=== PATIENT | female | born 1975 | race Caucasian/White ===

== ENCOUNTER 2016-12-22 11:06 | Emergency (ER) | payer OTHER ==
--- NOTE | 2016-12-22 11:21 | ERNOTE ---
Medical Problem HPI - Narrative Date of Service: 12/22/16 - General Chief Complaint: Abdominal Pain Time Seen by Provider: 12/22/16 11:28 Source: patient Exam Limitations: no limitations - Immun/Allergies/Home Medications Immunizations: IMMUNIZATION HX Immunizations Up to Date Yes History of Influenza Vaccine Yes Hx Pneumococcal Vaccination No Allergies/Adverse Reactions: Allergies No Known Allergies Allergy (Verified 12/22/16 11:21) Home Medications: HOME MEDICATIONS Alprazolam [Xanax] 0.5 mg PO BID 01/30/14 [Last Taken Unknown] Dexlansoprazole [Dexilant] 60 mg PO DAILY 01/30/14 [Last Taken Unknown] Lisinopril 40 mg PO DAILY 01/30/14 [Last Taken Unknown] Gabapentin 900 mg PO TID 08/18/14 [Last Taken Unknown] traMADol HCL [Ultram] 50 mg PO TID 08/18/14 [Last Taken Unknown] Insulin Glargine,Hum.rec.anlog [Lantus] 30 units SC HS 06/27/15 [Last Taken Unknown] Albuterol Sulfate [Ventolin Hfa] 8 gm IH BID 07/07/15 [Last Taken Unknown] Cyclobenzaprine HCl [Flexeril] 20 mg PO HS 02/07/16 [Last Taken Unknown] Phentermine HCl 30 mg PO DAILY 02/07/16 [Last Taken Unknown] Polyethylene Glycol 3350 [Miralax] 17 gm PO DAILY 02/07/16 [Last Taken Unknown] Nortriptyline HCl [Pamelor] 25 mg PO HS 12/22/16 [Last Taken Unknown] Oxcarbazepine [Trileptal] 150 mg PO BID 12/22/16 [Last Taken Unknown] Pramipexole Di-HCl [Mirapex] 0.25 mg PO HS 12/22/16 [Last Taken Unknown] Topiramate [Topamax] 100 mg PO HS 12/22/16 [Last Taken Unknown] - History of Present History Narrative: Just before noon yesterday, gradually developed epigastric pain. Sharp and like a large softball, tender. No prior. Radiates up into chest. Moving certain ways worsens. BM yesterday soft, no blood in it. No urinary symptoms. Has steadily worsened, so she came here. Drinking liquids worsens. Prior gastric bypass. Timing: getting worse Severity: moderate, severe Modifying Factors - (Improves): Present: other - nothing Modifying Factors - (Worsens): Present: other - drinking Review of Systems - Review of Systems Constitutional: Present: no symptoms reported EYE: Present: no symptoms reported ENT: Present: no symptoms reported Respiratory: Present: no symptoms reported Cardiology: Present: chest pain Gastrointestinal/Abdominal: Present: See HPI, eating less, drinking less. Absent: nausea, vomiting Genitourinary: Present: no symptoms reported Musculoskeletal: Present: no symptoms reported Skin: Present: no symptoms reported Neurological: Present: no symptoms reported Endocrine: Present: no symptoms reported Hematologic/Lymphatic: Present: no symptoms reported Psych: Present: no symptoms reported All Other Systems: All systems neg except as marked - Patient's Past Medical History Patient History - Medical: Diabetes Type 2 Insulin Dependent Patient History - Cardiac/Respiratory: No pertinent hx Patient History - Cancer: No Hx of Cancer Patient History - Surgical Procedures: Back Surgery, Cholecystectomy, Gastric Bypass, Hysterectomy, Other Patient History - Other: None - Family History Mother Family History - Medical: Father Family History - Medical: - Social History Living Situations: home Abuse History: No History of abuse Psych History: Hx of Depression Smoking Status: Never smoker Have you smoked in the past 12 months: No Do you dip or chew tobacco: No Alcohol Use: none Drug Use: none - Immunizations Immunizations Up to Date: Yes Hx Pneumococcal Vaccination: No History of Influenza Vaccine: Yes Physical Exam - Physical Exam General Appearance: Present: wd/wn, alert, mild distress, obese Eye Exam: Normal inspection: bilateral, PERRL: bilateral, EOMI: bilateral Ears, Nose, Throat: Present: normal ENT inspection Neck: Present: normal inspection, nontender Respiratory: Present: no respiratory distress, normal breath sounds Cardiovascular/Chest: Present: regular rate, rhythm, no murmur Gastrointestinal/Abdominal: Present: normal bowel sounds, nondistended, soft, no organomegaly, tenderness - epigastric Back Exam: Present: normal inspection, no CVA tenderness, no vertebral tenderness Extremity Exam: Present: normal inspection, pedal edema Neurological Exam: Present: alert, oriented, no motor/sensory deficits Skin Exam: Present: normal color, warm/dry ED Progress - Results and Orders Patient's Lab Results:: I have reviewed the patient's lab results. - Vital Signs Patient's Vital Signs:: I have reviewed the patient's vital signs. Vital Signs: Vital Signs 12/22/16 11:14 Temperature 36.8 C Pulse Rate 75 Respiratory 14 Rate Blood Pressure 107/60 O2 Sat by Pulse 97 Oximetry - EKG EKG: NSR EKG read: Interp. by me - non acute - CT/Ultrasound CT/Ultrasound Narrative: The patient remains uncomfortable, though improved, following two doses of Dilaudid and Phenergan IV. CT scan report I've reviewed, which describes a possible ulcer at the gastrojejunal anastamosis and a possible gastrogastric fistula. I discussed this with the patient, and recommended ambulance transfer today to the [facility] where she had her gastric bypass surgery in September of 2016. - Progress/Reassessment Chief Complaint: General Assessment Progress Note-Subjective: 12/22/16 15:15 I spoke by telephone with Dr. Andrew Platt, triage, [facility], who agreed to accept this patient by ambulance transfer. Departure - Departure Clinical Impression: Gastrogastric fistula Gastric ulcer Qualifiers: Gastric ulcer chronicity: acute Gastric ulcer complication status: unspecified whether hemorrhage or perforation present Qualified Code(s): K25.3 - Acute gastric ulcer without hemorrhage or perforation Disposition: [facility] Condition: Good Referrals: [Primary Care Provider] -
[2016-12-22] MEDS ORDERED: NORMAL SALINE 1,000 ML IV ONE (11:36)
[2016-12-22] MEDS ORDERED: HYDROmorphone HCL 1 MG/ML DISP.SYRIN IV ONE ×2 (11:36→14:12)
[2016-12-22] MEDS ORDERED: PROMETHAZINE HCL 25 MG in DEXTROSE 5 % IN WATER 50 ML IV ONE ×4 (11:36→14:12)
[2016-12-22] MEDS ORDERED: LIDOCAINE HCL 20 ML UDC PO ONE (11:38)
[2016-12-22] MEDS ORDERED: MAG HYDROX/ALUMINUM HYD/SIMETH 30 ML UDC PO ONE (11:38)
[2016-12-22] MEDS ORDERED: BELLADONNA ALKALOIDS/PHENOBARB 60 ML BTL PO ONE (11:38)
[2016-12-22] MEDS ORDERED: HYDROmorphone HCL 1 MG/ML DISP.SYRIN ONE ×2 (11:44→14:17)
--- OUTSIDE RECORDS SUMMARY | 2016-12-22 11:52 | XMS REPORT | Continuity of Care Document ---
:1975 Author Organization [facility] ([facility]) Address [address] [place] [address] Phone [phone] Care Team Providers Name Role Phone Thang Gonzalez Primary Care Provider [phone] Source Comments This disclosure is being made pursuant to the Care Everywhere program, applicable federal and state laws, and may not contain all informaitonavailable regarding this patient.[facility] ([facility]) Active Allergies and Adverse Reactions Allergen Noted Date Severity Reactions Comments Adhesive Tape-Silicones 10/10/2016 Pruritus Pt. States that she gets skin irritation from plastic tape. Current Medications Prescription Sig. Disp. Refills Start Date End Date Status ALPRAZOLAM 0.5 mg Take 0.5 mg by mouth 2 06/12/2015 Active tablet 2 times daily as needed. SUPPLY FREESTYLE LITE 5 07/07/2015 Active test strips SUPPLY FREESTYLE LITE 0 07/05/2015 Active meter TRAMADOL 50 mg tablet Take 50 mg by mouth 0 07/12/2015 Active daily. NORTRIPTYLINE 25 mg Take 50 mg by mouth 5 06/19/2015 Active capsule at bedtime. LOVASTATIN 20 mg Take 20 mg by mouth 5 07/08/2015 Active tablet every evening. LISINOPRIL 40 mg Take 40 mg by mouth 1 06/27/2015 Active tablet daily. GABAPENTIN 300 mg Take 900 mg by mouth 2 06/25/2015 Active capsule 3 times daily. SUPPLY lancets 5 05/19/2015 Active (UNILET) 30 gauge DEXIL[address] Take 60 mg by mouth 5 06/19/2015 Active capsule daily. BD INSULIN SYRINGE 5 07/12/2015 Active ULTRA-FINE 1 mL 31 g x 5/16" FLUoxetine 20 mg Take 40 mg by mouth 2 10/30/2015 Active capsule daily. VENTOLIN HFA 90 Use 1-2 Puffs by 0 10/26/2015 Active mcg/Actuation inhaler inhalation every 4 hours as needed. albuterol 2.5 mg/3 mL Use 3 mL by 0 10/16/2015 Active inhalation solution inhalation every 6 hours as needed. topiramate 50 mg Take 50 mg by mouth 1 08/05/2016 Active tablet 2 times daily. docusate 100 mg Take 200 mg by mouth Active capsule every 72 hours. OXcarbazepine 150 mg Take 150 mg by mouth 2 09/11/2016 Active tablet 2 times daily. For fibromyalgia OTHER Cream for yeast Active HYDROmorphone 2 mg Take 1 tablet (2 mg 20 tablet 0 09/27/2016 Active tablet total) by mouth every 4 hours as needed for Pain. Use as needed after bariatric surgery. ondansetron 4 mg Take 1 tablet (4 mg 10 tablet 1 09/27/2016 Active tablet total) by mouth every 6 hours as needed for Nausea/Vomiting. Use as needed after bariatric surgery. cyclobenzaprine 10 mg Take 10 mg by mouth Active tablet at bedtime. pramipexole 0.25 mg Take 0.25 mg by Active tablet mouth at bedtime. magnesium oxide PO Take 1 tablet by Active mouth daily. insulin lispro Inject 1-5 Units 3 mL 5 10/11/2016 Active (HumaLOG) 100 unit/mL subcutaneously injection vial before meals and at bedtime. 1 U insulin for every 50 over BG of 150: 1 U for 151-200, 2 U for 201-250, 3 U for 251-300, 4 U for 301-350, 5 U for 351-400. insulin glargine Inject 15 Units 10 mL 11 10/11/2016 Active (LANTUS) 100 unit/mL subcutaneously injection vial daily. HYDROcodone-acetamino TAKE ONE TABLET PO Q 0 09/30/2016 Active phen 5-325 mg per FOUR H PRF PAIN tablet prednisoLONE acetate Instill 1 Drop onto 5 mL 0 10/22/2016 Active 1 % ophthalmic the right eye 4 suspension times daily. cyclopentolate 1 % Instill 1 Drop onto 15 mL 0 10/22/2016 Active ophthalmic solution the right eye daily. acyclovir 800 mg Take 1 tablet (800 50 tablet 3 10/25/2016 Active tablet mg total) by mouth 5 times daily. Active Problems Problem Noted Date Diabetes mellitus type 2 in obese 04/03/2016 Obstructive sleep apnea syndrome 04/03/2016 Morbid obesity due to excess calories 10/30/2015 Chiari malformation 07/07/2015 Most Recent Encounters Date Type Specialty Providers Description 12/12/2016 Telephone [facility] Sushma Hawkins, Chief Comp: RN Follow-up 11/21/2016 [facility] Food and Nutrition Earnest Mendoza MD Chief Comp: Patient Encounter Kimberly Felipe RD Reported Reason For LD Visit 11/21/2016 Office Visit Earnest Duong MD Chief Comp: Patient Avgenackis, Reported Reason For Allison Munguia PA-C Visit 11/14/2016 [facility] Food and Nutrition Default, Other Chief Comp: Patient Encounter Billg - Defo Reported Reason For Earnest Mendoza MD Visit Kimberly Felipe RD LD 11/14/2016 Office Visit Tammie Baca, Dx: Encounter for Allison Munguia PA-C long-term (current) Earnest Mendoza MD drug use (Primary Dx) 11/08/2016 Office Visit [facility] BRITTON Baca, Chief Comp: Patient AllisonJEET Whitfield-C Reported Reason For Visit 10/22/2016 Office Visit Ophthalmology - Marybel Levi Dx: Iridocyclitis of Specialty K, 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 (Primary Dx) 10/22/2016 Telephone [facility] GI/Hepatology Yuni Lindsey RN Chief Comp: Medication Question 10/21/2016 Office Visit Ophthalmology - Marybel Levi Chief Comp: Patient Specialty K, OD Reported Reason For Visit 10/18/2016 Telephone [facility] Endocrinology Ene Seymour, Chief Comp: Diabetes RN 10/15/2016 Office Visit Ophthalmology - Default, Other Dx: Herpes zoster Specialty Billg - Defo without complication Marybel Levi (Primary Dx) K, OD 10/15/2016 [facility] Food and Nutrition Earnest Mendoza MD Dx: Morbid obesity Encounter Kimberly Felipe RD due to excess LD calories (Primary Dx) 10/15/2016 Office Visit Earnest Duong MD Dx: Bariatric Magdalena Lindsey, surgery status CIRCULAR STUFFER (Primary Dx) 10/14/2016 Nurse Triage General Care Francoise Spaulding Chief Comp: IP Inpatient - 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 Follow-up Call 10/12/2016 Telephone General Care Chula Bearden Chief Comp: Inpatient - Adult B, RN Follow-up 10/10/2016 Surgery General Surgery Earnest Mendoza MD GASTROPLASTY, YASH EN Y, LAPAROSCOPIC 09/30/2016 Office Visit Earnest Duong MD Chief Comp: Patient Magdalena Lindsey, Reported Reason For CIRCULAR STUFFER Visit 09/27/2016 Hospital Anesthesiology Default, Other Chief Comp: Patient Encounter Billg - Defo Reported Reason For Aspen Munoz MD McNair, Christine M, CRNA 09/27/2016 [facility] Food and Nutrition Earnest Mendoza MD Dx: Morbid obesity Encounter Kimberly Felipe, RD due to excess LD calories (Primary Dx) 09/27/2016 Office Visit Earnest Duong MD Dx: Morbid obesity due to excess calories (Primary Dx) 09/27/2016 Anesthesia Event General Surgery Adalgisa Marie CRNA Immunizations Name Dates Previously Given Next Due Influenza, unspecified 07/25/2016,07/13/2015 Social History Tobacco Use Types Packs/Day Years Used Date Never Smoker Smokeless Tobacco: Never Used Alcohol Use Drinks/Week oz/Week Comments No Last Filed Vital Signs Vital Sign Reading Time Taken Blood Pressure 123/79 10/15/2016 2:14 PM [facility]ER Pulse 103 10/15/2016 2:14 PM [facility]ER Temperature 36.8 C (98.2 F) 10/15/2016 2:14 PM [facility]ER Respiratory Rate 18 10/15/2016 2:14 PM [facility] Height 1.6 m (5' 2.99") 10/15/2016 2:17 PM [facility]ER Weight 129.3 kg (285 lb 0.9 oz) 10/15/2016 2:17 PM [facility]LE [facility]ER Body Mass Index 50.51 10/15/2016 2:17 PM [facility]ER Oxygen Saturation 92% 10/12/2016 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 Plan of Care Date Type Specialty Providers Description 01/03/2017 Appointment Earnest Duong MD Chief Comp: Patient [address] [place] [address] [phone] (Fax) 01/03/2017 Appointment Earnest Duong MD [address] [place] [address] [phone] (Fax) Chief Comp: Patient Phuong Allisonagapito Munguia PA-C [address] [place] [address] [phone] (Fax) Reported Reason For Visit 05/30/2017 Appointment Neurosurgery Craig Wells MD Chief Comp: Patient [address] [place] [address] [phone] (Fax) Health Maintenance Due Date Last Done Comments Hepatitis B Vaccine (1 of 3 - Primary 1975 Series) Tdap Vaccine 01/17/1984 Diabetic: Ldl 1991 DIABETIC: Microalbumin 1991 MMR Vaccine 1991 Td Vaccine 1991 Pneumococcal Vaccine (1 of 1 - PPSV23) 01/17/1992 Cervical Cancer Screening 2003 Mammogram 2013 DIABETIC: Foot Exam 01/30/2016 DIABETIC: Retinal Eye Exam 01/30/2016 DIABETIC: Hemoglobin A1C 02/27/2017 08/30/2016 DIABETIC: Cholesterol 08/30/2017 08/30/2016 Diabetic: Hdl 08/30/2017 08/30/2016 DIABETIC: Triglycerides 08/30/2017 08/30/2016 Influenza Vaccine: Seasonal Completed 07/25/2016, 07/13/2015 Procedures from Last 3 Months Procedure Name Priority Date/Time Associated Comments Diagnosis ABSTRACTED BY BILLING Routine 10/10/2016 2:14 Morbid obesity due Results for this STAFF PM SO[facility]AYER to excess calories procedure are in Diabetes mellitus the results type 2 in obese section. Obstructive sleep apnea syndrome GASTROPLASTY, YASH EN 10/10/2016 9:49 Morbid obesity due Y, LAPAROSCOPIC AM SOLE LAYER to excess calories Results from Last 3 Months HEMOGLOBIN (10/15/2016 2:09 PM) Component Value Range Hemoglobin 12.7 11.9-15.5 g/dL Specimen Whole Blood BLOOD GLUCOSE, BEDSIDE (10/12/2016 8:08 AM)Only the most recent of10 resultswithin the time period is included. Component Value Range Glucose, Accu-Chek 212(H) 65-99 mg/dL Specimen Blood, capillary BLOOD CELL MORPHOLOGY (10/12/2016 6:44 AM) Specimen Whole Blood CBC (COMPLETE BLOOD COUNT) (10/12/2016 6:44 AM)Only the most recent of2 resultswithin the time period is included. Component Value Range WBC Count 9.0 3.7-10.5 K/MM3 RBC Count 3.77(L) 4.00-5.20 M/MM3 Hemoglobin 11.8(L) 11.9-15.5 g/dL Hematocrit 32(L) 35-47 % MCV (Mean Corpuscular Volume) 86 82-99 FL MCH (Mean Corpuscular Hemoglobin) 31 25-35 PG MCHC (Mean Corpuscular Hemoglobin Concentration) 37(H) 32-36 % Platelet Count 275 150-400 K/MM3 MPV (Mean Platelet Volume) 9.8 9.4-12.3 FL RBC Dist Width-STD 37.2 36.4-46.3 FL RBC Distrib Width 11.9 9.0-14.5 % Nucleated RBC 0 /100 WBC Specimen Whole Blood AMYLASE, OTHER (10/11/2016 3:46 AM)Only the most recent of2 resultswithin the time period is included. Component Value Range Amylase Fluid Type Surgical drain Amylase, Other 18Comment: U/L This test is not approved by the FDA for this sample type. Performance characteristics and reference range have not been verified.Results should be interpreted in conjunction with clinical finding s.A published study using [employer] corie 8000 analyzers has demonstrated that analysis of amylase in drain fluids, pancreatic fluid, peritoneal/ascites fluid, and pleural fluid shows no e vidence of systematic matrix interference (Clin Biochem 48:911-914, 2015). Specimen Other HEMATOCRIT (10/10/2016 5:50 PM) Component Value Range Hematocrit 37 35-47 % Specimen Whole Blood SRG OR CASE (10/10/2016 2:14 PM) Narrative Earnest Mendoza MD 10/10/20162:14 PM OR CASE: GASTROPLASTY, YASH EN Y, LAPAROSCOPIC Post-Op Procedure Note Date: 10/10/16 Service: Surgery-Adult/Plastics Location: MAIN OR Preoperative Diagnosis: * Morbid obesity due to excess calories [E66.01] BMI 50 Operation/Procedure: GASTROPLASTY, YASH EN Y, LAPAROSCOPIC (N/A) Lysis of adhesions for greater than one hour Postoperative Diagnosis: * Morbid obesity due to excess calories [E66.01] Surgeon(s): * Earnest Mendoza MD - Primary * aMtt Fraser MD - Resident - Assisting * Sarai Tomas MD - Fellow Findings: Dense adhesions between the omentum and the small bowel and omentum and the abdominal wall Estimated Blood Loss: None/Minimal Specimens: None Anesthesia:General Urine Output:125 ml Fluid Replacement: lactated ringers (LR) continuous infusion: 2000 ml Implants: Implant Name Type Inv. Item Serial No. Blending Tank Helper Lot No. LRB No. Used Action STAPLE 60MM ARTICULATING VASCULAR MEDIUM TRI-STAPLE - [id number] STAPLE 60MM ARTICULATING VASCULAR MEDIUM TRI-STAPLEAUTOSUTURE [id number] N/A 3 Implanted STAPLE 60MM ARTICULATING MEDIUM THICK LOAD - [id number] 60MM ARTICULATING MEDIUM THICK LOADAUTOSUTURE [id number] N/A 4 Implanted LOAD TRISTAPLE VASCULAR CHRISTENSEN - [id number] TRISTAPLE VASCULAR GRAYAUTOSUTURE [id number] N/A 1 Implanted STAPLE 45MM ARTICULATING MEDIUM THICK LOAD - [id number] STAPLE 45MM ARTICULATING MEDIUM THICK LOAD AUTOSUTURE [id number] N/A 1 Implanted Operative Report Completion: The patient was brought into the operative suite and placed on the operative table in the supine position.General anesthesia was then initiated per anesthesia protocol.Next, a timeout was performed during which the surgical, nursing, and anesthesia staff agreed upon the patient, site of operation and nature of operation to be performed. Next a alvarez catheter was placed under sterile conditions.The patient's abdomen was then prepped and draped in the usual sterile fashion. The operation was begun by placing a Veress needle through a left upper quadrant stab incision.The abdomen was insufflated to a pressure of 15 mmHg after verifying an appropriate opening pressure.A 6 port technique was used.All ports were radially dilating ports.Five millimeter ports were placed in the left and right lateral abdominal wall.A 12 mm trocar was placed just right of the umbilicus approximately 20 cm caudal to the xyphoid process.A 12 mm port was placed adjacent to the tip of the falciform ligament with a left lateral displacement of approximately 4 cm.And a final 5 mm port was placed 9 cm cephalad to the falciform port also to the left of midline. These ports were placed as room was achieved.During this process, an additional RLQ port was placed to help with adhesiolysis.In total, there was at least one hour spent lysing adhesions between the colon and omentum, small bowel and omentum, and abdominal wall and omentum. After having retracted the liver with a flexible liver retractor, the operation was begun by identifying the ligament of treitz.A biliopancreatic limb was then traced out for a distance of 50 cm. The small bowel was then transected with and Endo-SOL manuel load. The mesentery was then further divided with a Sonicision.Next, a yash limb was traced out to a distance of 100 cm.A vbaa-[id number]-[id number] jejunojejunostomy was then created using sequential fires of Endo-SOL manuel loads.A 2-0 silk suture was placed as a crotch stitch.An anti-obstruction stitch of 2-0 silk suture was also placed.Finally, the mesenteric defect was closed with a running 2-0 silk suture. Following this, the omentum was divided to the level of the transverse colon with the Sonicision to aid in a tension-free gastrojejunostomy. The patient was then placed in steep reverse trendelenburg position.The flimsy adhesions between the fundus and the left mihaela were taken down bluntly.Next, the lesser sac was entered and the retrogastric space developed.Following this, the vasculature along the lesser curve was divided with an Endo-SOL robledo load.Next, a lesser-curve based small gastric pouch was created with sequential firings of Endo-SOL purple loads.The posterior wall of the pouch was then cleaned off to provide for a clean anastomosis between the stomach and jejunum. The yash limb was then brought up into the foregut in an antecolic, antegastric position.A gastrojejunostomy was then created.To do this, a posterior row of 2-0 polysorb was completed.A gastrotomy and enterotomy were then created. Through this an Endo-SOL purple load was passed to create an interior row of the anastomosis.The common gastroenterostomy was then closed with a running 2-0 polysorb suture.Finally, an imbricating anterior row was completed with 2-0 polysorb suture. Once this was done, a Ewol tube was passed into the stomach under direct visualization and a dynamic leak test was performed by insufflating the stomach and anastomosis while submerged under saline.This was negative.A ANA drain was then placed posterior to the anastomosis and brought out the lateral port site.This was fixed in place with a 3-0 nylon suture. The rest of the ports were then removed after verifying hemostasis at the port entry sties.The port sites were then closed with inverted, interrupted stitches of 4-0 Biosyn.The skin was further cleaned wet-to-dry.The wounds were then covered with Dermabond.Following this, the port sites were infused with 0.25% Marcaine for local pain control. The patient was then extubated per anesthesia protocol and transferred to the post operative bed extubated and in stable condition.There were no immediate kisha-operative complications. All needle and sponge counts were correct at the end of the case x2.I was present and scrubbed for the entire case. Post-Op Plan: Drains: Closed Suction ANA, Intended Duration unknown Antibiotics: Prophylactic Anticoagulation: Prophylactic, Starting today Post Op Studies/Consults: Not applicable Intended Discharge: Unknown Intended Outpatient Follow-Up: One Week Intended Outpatient Studies: Not Applicable Other: Not Applicable SCREEN, QUALITATIVE, URINE (09/27/2016 11:07 AM) Component Value Range Screen, Qualitative, Urine NegativeComment: Negative Cutoff is 20 mIU/mL HCG in urine. If results are unexpectedly positive, consider testing using quantitative serum HCG assay.False negative result may occur when the levels of HCG are slightly belo w the cutoff.When is still suspected, a repeat urine HCG 48 hours later or a quantitative serum HCG should be considered. Results should always be assessed in conjunction with the patien t's medical history, clinical examination and other findings. Specimen Urine URINALYSIS (09/27/2016 11:07 AM) Component Value Range Color, Urine Yellow Straw, Pale Yellow, Yellow, Clear, None Clarity, Urine Slightly Cloudy(A) Clear pH, Urine 7.0 <9.0 Glucose, Urine Negative Negative Blood, Urine Negative Negative Ketones, Urine Negative Negative Protein, Urine Negative Negative Urobilinogen, Urine Normal Normal Bilirubin, Urine Negative Negative Leukocyte Esterase, Urine Negative Negative Nitrite, Urine Positive(A) Negative Spec Dudley, Urine 1.015 1.000-1.030 Specimen Urine DIFFERENTIAL (09/27/2016 8:47 AM) Component Value Range % Neutrophils-Auto Diff 57.1 % Neutrophils-Auto Diff 4440 7280-6260 /MM3 % Lymphocytes-Auto Diff 35.9 % Lymphocytes-Auto Diff 2790 875-3300 /MM3 % Monocytes-Auto Diff 5.0 % Monocytes-Auto Diff 390 130-860 /MM3 % Eosinophils-Auto Diff 1.0 % Eosinophils-Auto Diff 80 40-390 /MM3 % Basophils 0.6 % Basophils-Auto Diff 50 10-136 /MM3 % Immature Granulocytes-Auto Diff 0.4 % Immature Granulocytes-Auto Diff 30 /MM3 Specimen Whole Blood CBC (COMPLETE BLOOD COUNT) (09/27/2016 8:47 AM) Component Value Range WBC Count 7.8 3.7-10.5 K/MM3 RBC Count 4.53 4.00-5.20 M/MM3 Hemoglobin 13.5 11.9-15.5 g/dL Hematocrit 40 35-47 % MCV (Mean Corpuscular Volume) 88 82-99 FL MCH (Mean Corpuscular Hemoglobin) 30 25-35 PG MCHC (Mean Corpuscular Hemoglobin Concentration) 34 32-36 % Platelet Count 357 150-400 K/MM3 MPV (Mean Platelet Volume) 9.8 9.4-12.3 FL RBC Dist Width-STD 38.2 36.4-46.3 FL RBC Distrib Width 11.9 9.0-14.5 % Nucleated RBC 0 /100 WBC Specimen Whole Blood CBC WITH DIFFERENTIAL (09/27/2016 8:47 AM) Specimen Whole Blood Narrative The following orders were created for panel order CBC WITH DIFFERENTIAL. Procedure Abnormality Status --------- ------ CBC (COMPLETE BLOOD COUNT)[[id number]] Final result DIFFERENTIAL[[id number]] Final result Please view results for these tests on the individual orders. ELECTROLYTE PANEL (09/27/2016 8:47 AM) Component Value Range Sodium 137 135-145 mEq/L Potassium 4.5 3.5-5.0 mEq/L Chloride 99 95-107 mEq/L CO2 24 22-29 mEq/L Anion Gap 14 8-18 mEq/L Specimen Blood CREATININE (09/27/2016 8:47 AM) Component Value Range Creatinine 0.8Comment: 0.5-1.0 mg/dL Creatinine switched to enzymatic method on 02/19/2011.GFR equation switched to IDMS-traceable MDRD equation on 02/19/2011. Calculated GFR values are not valid in clinical settings where serum creatinine is changing. Calculated GFR 78 >60 mL/min/1.73 m2 Specimen Blood PT/INR (PROTHROMBIN TIME/INR) VENOUS (09/27/2016 8:47 AM) Component Value Range PT (Prothrombin Time) 10 9-12 secs INR 0.9 <4.0 Specimen Blood PTT (PARTIAL THROMBOPLASTIN TIME) (09/27/2016 8:47 AM) Component Value Range PTT 22 22-31 secs Specimen Blood BLOOD UREA NITROGEN (09/27/2016 8:47 AM) Component Value Range BUN 14 10-20 mg/dL Specimen Blood
[2016-12-22 12:00] LABS: Hematocrit 40.9 % (37.0-47.0); Hemoglobin 13.8 gm/dL (12.5-16.0); Mean Cell Volume 91.7 fl (78-100); Mean Corpuscular Hemoglobin 30.9 pg (27-31); Mean Corpuscular Hgb Conc 33.7 g/dl (32-36); Mean Platelet Volume 9.6 fl (6.0-9.5); Neutrophil # 4.9 K/mm3 (1.3-6.0); Neutrophil % 57.7 % (42-75.0); Platelet Count 296 K/mm3 (150-450); Red Blood Count 4.46 M/mm3 (4.2-5.4); Red Cell Distribution Width 12.4 % (11.5-14.0); White Blood Count 8.4 K/mm3 (4.0-10.5)
[2016-12-22] MEDS ORDERED: DIATRIZOATE MEGLU/DIATRIZO SOD 30 ML BTL PO ONE (12:04)
[2016-12-22] MEDS ORDERED: DIATRIZOATE MEGLU/DIATRIZO SOD 30 ML BTL ONE (12:05)
[2016-12-22 12:15] LABS: Albumin * 3.5 gm/dl (3.4-5.0); Anion Gap 13.9 mmol/L (6.8-13.8); BUN/Creatinine Ratio 12.7 (9.0-21.6); Bilirubin, Total 0.4 mg/dL (0.0-1.1); Calcium * 8.9 mg/dL (7.9-10.9); Carbon Dioxide 26.7 mmol/L (24-32.6); Potassium 3.6 mmol/L (3.4-4.6); Total Protein 7.5 gm/dL (6.2-8.2)
[2016-12-22 13:55] LABS: Urine Bilirubin Negative (NEGATIVE); Urine Blood Negative /ul (NEGATIVE); Urine Ketone Negative (NEGATIVE); Urine Protein Negative (NEGATIVE); Urine Specific Gravity 1.025 SP.GR. (1.005-1.010); Urine Urobilinogen Normal (NORMAL)
[2016-12-22 14:00] LABS: Urine Appearance Slightly Cloudy; Urine Bacteria 4+; Urine Color Yellow; Urine Nitrite Positive (NEGATIVE); Urine RBC None Seen /hpf (0-5)
[2016-12-22] MEDS ORDERED: FAMOTIDINE 10 MG/ML VIAL IV ONE ×2 (14:55→15:07)
[2016-12-22] MEDS ORDERED: SUCRALFATE 1 G/10 ML UDC PO ONE (14:55)
[2016-12-22] MEDS ORDERED: PANTOPRAZOLE SODIUM 40 MG in NORMAL SALINE 100 ML IV ONE (14:55)
[2016-12-22] MEDS ORDERED: PANTOPRAZOLE SODIUM 40 MG/100 ML PIGGYBACK IV ONE (15:09)
[2016-12-22 15:10] VITALS: BP 106/65
--- OUTSIDE RECORDS SUMMARY | 2016-12-22 16:48 | XMS REPORT | Continuity of Care Document ---
:1975 Author Organization [facility] ([facility]) Address [address] [place] [address] Phone [phone] Care Team Providers Name Role Phone Thang Gonzalez Primary Care Provider [phone] Source Comments This disclosure is being made pursuant to the Care Everywhere program, applicable federal and state laws, and may not contain all informaitonavailable regarding this patient.[facility] ([facility]) Active Allergies and Adverse Reactions Allergen [...] Recent Encounters Date Type Specialty Providers Description 12/22/2016 Hospital Emergency Medicine Encounter 12/12/2016 Telephone [facility] Sushma Hawkins, Chief Comp: RN Follow-up 11/21/2016 [facility] Food and Nutrition Earnest Mendoza MD Chief Comp: Patient Encounter Kimberly Felipe RD Reported Reason For LD Visit 11/21/2016 Office Visit Srg Earnest Alves MD Chief Comp: Patient Avgenackis, Reported Reason For Allison Munguia PA-C Visit 11/14/2016 [facility] Food and Nutrition Default, Other Chief Comp: Patient Encounter Billg - Defo Reported Reason For Earnest Mendoza MD Visit Kimberly Felipe RD LD 11/14/2016 Office Visit Tammie Baca, Dx: Encounter for Allisonagapito Munguia PA-C long-term (current) Earnest Mendoza MD drug use (Primary Dx) 11/08/2016 Office Visit [facility] BRITTON Baca, Chief Comp: Patient Alilson Nilda PA-C Reported Reason For Visit 10/22/2016 Office Visit Ophthalmology - Marybel Levi Dx: Iridocyclitis of Specialty K, 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 (Primary Dx) 10/22/2016 Telephone [facility] GI/Hepatology Yuni Lindsey RN Chief Comp: Medication Question 10/21/2016 Office Visit Ophthalmology - Marybel Levi Chief Comp: Patient Specialty K, OD Reported Reason For Visit 10/18/2016 Telephone [facility] Endocrinology Ene Seymour, Chief Comp: Diabetes RN 10/15/2016 Office Visit Ophthalmology - Default, Other Dx: Herpes zoster Specialty Billg - Defo without complication Marybel Levi (Primary Dx) K, OD 10/15/2016 [facility] Food and Nutrition Earnest Mendoza MD Dx: Morbid obesity Encounter Kimberly Felipe RD due to excess LD calories (Primary Dx) 10/15/2016 Office Visit Earnest Camilo MD Dx: Bariatric Magdalena Lindsey, surgery status MOUNTER FLUTES AND PICCOLOS (Primary Dx) 10/14/2016 Nurse Triage General Care Francoise Spaulding Chief Comp: IP Inpatient - Adult [employer] Follow-up Call 10/12/2016 Telephone General Care Chula Bearden Chief Comp: Inpatient - Adult Kristal RN Follow-up 10/10/2016 Surgery General Surgery Earnest Mendoza MD GASTROPLASTY, YASH EN Y, LAPAROSCOPIC 09/30/2016 Office Visit Earnest Duong MD Chief Comp: Patient Magdalena Lindsey, Reported Reason For MOUNTER FLUTES AND PICCOLOS Visit 09/27/2016 Hospital Anesthesiology Default, Other Chief Comp: Patient Encounter Billg - Maryo Reported Reason For Aspen Munoz MD McNair, Christine M, CRNA 09/27/2016 [facility] Food and Nutrition Earnest Mendoza MD Dx: [...] Taken Blood Pressure 123/79 10/15/2016 2:14 PM REHABILITATION SERVICES COORDINATOR Pulse 103 10/15/2016 2:14 PM REHABILITATION SERVICES COORDINATOR Temperature 36.8 C (98.2 F) 10/15/2016 2:14 PM REHABILITATION SERVICES COORDINATOR Respiratory Rate 18 10/15/2016 2:14 PM REHABILITATION SERVICES COORDINATOR Height 1.6 m (5' 2.99") 10/15/2016 2:17 PM REHABILITATION SERVICES COORDINATOR Weight 129.3 kg (285 lb 0.9 oz) 10/15/2016 2:17 PM REHABILITATION SERVICES COORDINATOR Body Mass Index 50.51 10/15/2016 2:17 PM REHABILITATION SERVICES COORDINATOR Oxygen Saturation 92% 10/12/2016 8:15 AM REHABILITATION SERVICES COORDINATOR Plan of Care Date Type Specialty Providers Description 01/03/2017 Appointment Earnest Duong MD Chief Comp: Patient [address] [place] [address] [phone] (Fax) 01/03/2017 Appointment Earnest Duong MD [address] [place] [address] [phone] (Fax) Chief Comp: Patient MannJanuary byrdagapito Munguia PA-C [address] [place] [address] [phone] (Fax) Reported Reason For Visit 05/30/2017 Appointment Neurosurgery Craig Wells MD Chief Comp: Patient [address] [place] [address] [phone] (Fax) Health Maintenance Due Date Last Done [...] obesity due Results for this STAFF PM REHABILITATION SERVICES COORDINATOR to excess calories procedure are in Diabetes mellitus the results type 2 in obese section. Obstructive sleep apnea syndrome GASTROPLASTY, YASH EN 10/10/2016 9:49 Morbid obesity due Y, LAPAROSCOPIC AM REHABILITATION SERVICES COORDINATOR to excess calories Results from Last 3 [...] * Earnest Mendoza MD - Primary * Matt Fraser MD - Resident - Assisting * Sarai Tomas MD - Fellow Findings: Dense adhesions between the omentum and the small bowel and omentum and the abdominal wall Estimated Blood Loss: None/Minimal Specimens: None Anesthesia:General Urine Output:125 ml Fluid Replacement: lactated ringers (LR) continuous infusion: 2000 ml Implants: Implant Name Type Inv. Item Serial No. Social Sciences Instructor Lot No. LRB No. Used Action STAPLE 60MM ARTICULATING VASCULAR MEDIUM TRI-STAPLE - [id number] STAPLE 60MM ARTICULATING VASCULAR MEDIUM TRI-STAPLEAUTOSUTURE [id number] N/A 3 Implanted STAPLE 60MM ARTICULATING MEDIUM THICK LOAD - [id number] 60MM ARTICULATING MEDIUM THICK LOADAUTOSUTURE [id number] N/A 4 Implanted LOAD TRISTAPLE VASCULAR CHRISTENSEN - [id number] TRISTAPLE VASCULAR GRAYAUTOSUTURE [id number] N/A 1 Implanted STAPLE 45MM ARTICULATING MEDIUM THICK LOAD - [id number] STAPLE 45MM ARTICULATING MEDIUM THICK LOAD AUTOSUTURE [id number] N/A 1 Implanted Operative Report Completion: The [...] out to a distance of 100 cm.A [id number] jejunojejunostomy was then created using sequential fires [...] Negative Negative Nitrite, Urine Positive(A) Negative Spec [place], Urine 1.015 1.000-1.030 Specimen Urine DIFFERENTIAL (09/27/2016 8:47 AM) Component Value Range % Neutrophils-Auto Diff 57.1 % Neutrophils-Auto Diff 4440 [id number] /MM3 % Lymphocytes-Auto Diff 35.9 % Lymphocytes-Auto [...] Abnormality Status --------- ------ CBC (COMPLETE BLOOD COUNT)[[id number]] Final result DIFFERENTIAL[[id number]] Final result Please view results for these [...]
== END 2016-12-22 15:49 | disposition short-term general hospital (02) ==
LOC: ER 11:06 → MS 16:42 → UNDOADMOB 16:42
DX: K31.6 Fistula of stomach and duodenum (principal); K25.3 Acute gastric ulcer without hemorrhage or perforation; E11.9 Type 2 diabetes mellitus without complications; Z79.4 Long term (current) use of insulin